=== PATIENT | male | born 1945 | race African-American/Black ===

== ENCOUNTER 2017-01-08 05:04 | Emergency (ER) | payer MEDICARE, OTHER, MEDICAID ==
[2017-01-08 05:38] LABS: #Basophils 0.1 thou/uL (0.0-0.2); #Eosinphils 0.2 thou/uL (0.0-0.7); #Lymphocytes 2.9 thou/uL (1.20-3.40); #Monocytes 0.7 thou/uL (0.11-0.59); #Neutrophils 2.5 thou/uL (1.40-6.50); %Basophils 1.5 % (0.0-1.0); %Eosinophils 2.9 % (0.0-10.0); %Monocytes 11.4 % (0.0-10.0); %Neutrophils 39.3 % (42.0-75.0); Hemoglobin 12.9 g/dL (14.0-18.0); Mean Corpuscular HGB CONC 33.6 g/dL (32.0-36.0); Mean Corpuscular Hemoglobin 32.7 pg (27.0-31.0); Mean Corpuscular Volume 97.4 fl (80.0-94.0); Mean Platelet Volume 7.6 fL (7.4-10.4); Platelet Count 246 thou/uL (130-400); RBC Distribution Width 11.9 % (11.5-14.5); Red Blood Cell (RBC) Count 3.94 mill/uL (4.70-6.10); White Blood Cell (WBC) Count 6.4 thou/uL (4.8-10.8)
[2017-01-08 05:40] LABS: Bilirubin Negative (Negative); Blood, Urine Negative (Negative); Clarity Clear (Clear); Glucose, Urine (Dipstick) Negative (Negative); Leukocyte Negative (Negative); Nitrite Negative (Negative); Protein, Urine (Dipstick) Negative (Neg-Trace); Specific Gravity, Urine 1.015 (1.005-1.030); Urobilinogen 0.2 mg/dL (0.2-1.0)
[2017-01-08 05:51] LABS: ALT (SGPT) 17 U/L (0-55); AST (SGOT) 27 U/L (5-34); Albumin 4.2 g/dL (3.4-4.8); Alkaline Phosphatase 51 U/L (40-150); Anion Gap 15 mmol/L (10-20); BUN (Urea Nitrogen) 14 mg/dL (8.4-25.7); Bilirubin, Total 0.4 mg/dL (0.2-1.2); Calc. Creatinine Clearance 0 mL/min (70-130); Calcium 8.9 mg/dL (7.8-10.44); Carbon Dioxide 22 mmol/L (23-31); Chloride 98 mmol/L (98-107); Estimated GFR-MDRD 81; Globulin 3.2 g/dL (2.4-3.5); Glucose 111 mg/dL (80-115); Lipase 68 U/L (8-78); Potassium 3.2 mmol/L (3.5-5.1); Protein, Total 7.4 g/dL (5.8-8.1); Sodium 132 mmol/L (136-145)
[2017-01-08] MEDS ORDERED: Potassium Chloride 20 MEQ TAB ONE (06:56)
--- NOTE | 2017-01-08 08:54 | CT ---
PRELIMINARY REPORT/[facility]/EMERGENCY AFTER HOURS PROCEDURE: EXAM: CT Abdomen and Pelvis With Intravenous Contrast. CLINICAL HISTORY: 71 years old, male; Pain; Abdominal pain; Tenderness; Lower; Patient HX: Abd pain started yesterday afternoon; Tender to the left lower quadrant, to the right lower quadrant, more severe to rlq; Addit ional info: Ermd ordered iv only; Gfr 81; No abdominal surgical history TECHNIQUE: Axial computed tomography images of the abdomen and pelvis with intravenous contrast. Coronal and sagittal reformatted images were created and reviewed. CONTRAST: 96 mL of ISOVUE 370 administered intravenously. COMPARISON: No relevant prior studies available. FINDINGS: Calcified granuloma in the anterior right lower lung. The lung bases otherwise appear essentially clear. There may be some mucosal/wall thickening involving the lower esophagus. This is nonspecific, but co uld represent evidence for esophagitis. Please correlate clinically. Probable small calcified gallstones within the gallbladder. Ultrasound could be more sensitive/specific for detecting gallstones, if clinically needed. No other definite gallbladder abnormality by CT. No biliary tree dilation. There are a few very small low attenuation areas in the liver. These are nonspecific, but are statistically most likely small cysts or hemangiomas. Probable small renal cysts bilaterally. No hydronephrosis of either kidney. No visible ureteral calculus. No perinephric fluid. Adrenal glands appear upper normal in size bilaterally, greater on the left. Unremarkable appearance of the spleen, and pancreas. No free air, ascites, or bowel distention. No evidence for abdominal aortic aneurysm. No retroperitoneal adenopathy. CT pelvis: The appendix is visualized and appears normal. There are no CT findings to strongly suggest diverticulitis. Prominent prostate enlargement with transverse diameter of 6.5 cm. correlation with PSA levels may b e helpful to exclude prostate malignancy. Possibly some mild diffuse urinary bladder wall thickening. This may be related to the prostate enla rgement. While nonspecific, this could also indicate evidence for cystitis. Please correlate clinically. IMPRESSION: Probable cholelithiasis, details above. No free air or bowel distention. Normal appendix. No diverticulitis. Prominent prostate enlargement and mild urinary bladder wall thickening, see above discussion. Other findings/details discussed above. Thank you for allowing us to participate in the care of your patient. Dictated and Authenticated by: Bogdan Domínguez MD 01/08/2017 7:20 AM Central Time ([place] \T\ Amy) FINAL REPORT EMERGENT AFTER HOURS CT ABDOMEN AND PELVIS: IMPRESSION: Agree with the preliminary interpretation given by [facility]. POS: [facility]
[2017-01-08] MEDS ORDERED: Iopamidol 370 76% 100 ML VIAL ONE (09:00)
== END 2017-01-08 07:40 | disposition home or self-care (01) ==
LOC: NAV ERS 05:04
DX: R10.31 Right lower quadrant pain (principal); R10.32 Left lower quadrant pain; I25.10 Atherosclerotic heart disease of native coronary artery without angina pectoris; E78.5 Hyperlipidemia, unspecified; I11.0 Hypertensive heart disease with heart failure; I50.9 Heart failure, unspecified; Z87.891 Personal history of nicotine dependence
CPT/HCPCS: 36415; 74177; 80053; 81003; 83605; 83690; 85025; 87086; 93005

== ENCOUNTER 2017-09-16 00:32 | Emergency (ER) | payer MEDICARE, OTHER, MEDICAID ==
[2017-09-16] MEDS ORDERED: Azithromycin 250 MG TAB ONE (01:06)
--- NOTE | 2017-09-16 07:41 | RAD ---
PORTABLE AP CHEST: Date: 09/15/17 HISTORY: Cough. COMPARISON: 03/08/16. FINDINGS: Cardiac silhouette and pulmonary vasculature are within normal limits. Vascular calcifications are ag ain seen in an ectatic thoracic aorta. Calcified granuloma is again present at the right lung base. T he lungs otherwise remain clear. There has been no interval change when compared to the prior exam. IMPRESSION: No acute cardiopulmonary process. POS: [facility]
== END 2017-09-16 01:17 | disposition home or self-care (01) ==
LOC: NAV ERS 00:32
DX: J20.9 Acute bronchitis, unspecified (principal); E78.5 Hyperlipidemia, unspecified; F17.210 Nicotine dependence, cigarettes, uncomplicated; I25.10 Atherosclerotic heart disease of native coronary artery without angina pectoris; I25.2 Old myocardial infarction; I11.0 Hypertensive heart disease with heart failure; I50.9 Heart failure, unspecified; Z79.899 Other long term (current) drug therapy
CPT/HCPCS: 71020

== ENCOUNTER 2020-05-15 16:36 | Emergency (ER) | payer MEDICARE, OTHER ==
[2020-05-15 17:56] LABS: Bilirubin Small (Negative); Blood, Urine Trace (Negative); Clarity Clear (Clear); Glucose, Urine (Dipstick) Negative (Negative); Ketone, Urine Trace mg/dL (Negative); Leukocyte Negative (Negative); Nitrite Negative (Negative); Protein, Urine (Dipstick) 100 mg/dL (Neg-Trace); Urobilinogen 0.2 mg/dL (Less than 2)
[2020-05-15 17:57] LABS: Bacteria/HPF None Seen HPF (None Seen); Squamous Epithelial 0-3 HPF (0-3); WBC/HPF 0-3 HPF (0-3)
== END 2020-05-15 18:21 | disposition home or self-care (01) ==
LOC: NAV ERS 16:36
DX: E86.0 Dehydration (principal); I25.10 Atherosclerotic heart disease of native coronary artery without angina pectoris; I25.2 Old myocardial infarction; Z87.891 Personal history of nicotine dependence; Z79.899 Other long term (current) drug therapy; Z79.82 Long term (current) use of aspirin
CPT/HCPCS: 51701; 51798; 81003; 81015

== ENCOUNTER 2020-06-10 10:22 | Emergency (ER) | payer MEDICARE, OTHER | END 2020-06-10 11:55 | disposition home or self-care (01) | LOC: NAV ERS 10:22 | DX: T83.011A Breakdown (mechanical) of indwelling urethral catheter, initial encounter (principal); I25.2 Old myocardial infarction; I11.0 Hypertensive heart disease with heart failure; I50.9 Heart failure, unspecified; I25.10 Atherosclerotic heart disease of native coronary artery without angina pectoris; E78.5 Hyperlipidemia, unspecified; N40.0 Benign prostatic hyperplasia without lower urinary tract symptoms; Z87.891 Personal history of nicotine dependence; Z79.82 Long term (current) use of aspirin; Z79.899 Other long term (current) drug therapy | CPT/HCPCS: 99283 ==

== ENCOUNTER 2023-08-02 09:05 | Emergency (ER) | payer MEDICARE, OTHER | END 2023-08-02 10:04 | disposition home or self-care (01) | LOC: NAV ERS 09:05 | DX: S60.511D Abrasion of right hand, subsequent encounter (principal); I25.10 Atherosclerotic heart disease of native coronary artery without angina pectoris; I25.2 Old myocardial infarction; I11.0 Hypertensive heart disease with heart failure; I50.9 Heart failure, unspecified; G62.9 Polyneuropathy, unspecified; E78.5 Hyperlipidemia, unspecified; Z87.891 Personal history of nicotine dependence; Z95.5 Presence of coronary angioplasty implant and graft; Z79.82 Long term (current) use of aspirin; Z79.899 Other long term (current) drug therapy | CPT/HCPCS: 99282 ==